=== PATIENT | male | born 1985 ===

== ENCOUNTER 2024-02-05 00:46 | Emergency (ER) | payer OTHER ==
[2024-02-05] MEDS ORDERED: ASPIRIN 81 MG ONE (01:44)
--- NOTE | 2024-03-04 19:31 | XR ---
Patient: Christophe Higgins Ordering Physician: Unknown, Unknown ID: [id number] Phone, Pager: Phone: N/A Pager: N/A : 1985 Age/Gender: 39Y, M Primary Location: N/A Procedure: CXR 2VIEW Study Herrera e: 02/05/2024 2:11:00 AM EXAMINATION TYPE: XR chest 2V DATE OF EXAM: 02/21/2024 1:20 PM CLINICAL INDICATION: Chest pain COMPARISON: None TECHNIQUE: XR chest 2V Frontal view of the chest. FINDINGS: Lungs/Pleura: There is no evidence of pleural effusion, focal consolidation, or pneumothorax. Pulmonary vascularity: Unremarkable. Heart/mediastinum: Cardiomediastinal silhouette is unremarkable. Musculoskeletal: No acute osseous pathology. Other findings: None IMPRESSION: Low lung volumes with a generalized hazy appearance which could represent atelectasis versus pulmonar y edema correlate with serum BNP.
== END 2024-02-05 03:00 | disposition home or self-care (01) ==
LOC: EC 00:46
DX: R00.2 Palpitations (principal); R07.89 Other chest pain
CPT/HCPCS: 71046; 80053; 83735; 84484; 85025; 93005; 99285